=== PATIENT | male | born 1940 | race Caucasian/White ===

== ENCOUNTER 2018-03-10 07:57 | Emergency (ER) | payer MEDICARE ==
[~2018-03-10] VITALS: Ht 180.3 cm; Wt 88.5 kg
[2018-03-10 08:00] VITALS: BP 134/64
== END 2018-03-10 09:04 | disposition home or self-care (01) ==
LOC: ER 07:58
DX: S80.211A Abrasion, right knee, initial encounter (principal); W18.39XA Other fall on same level, initial encounter; Y93.89 Activity, other specified; Y92.89 Other specified places as the place of occurrence of the external cause; Y99.8 Other external cause status
CPT/HCPCS: 73564; 99283